=== PATIENT | female | born 1935 | race Caucasian/White ===

== ENCOUNTER 2019-05-19 13:38 | Observation (INO) | payer MEDICARE ==
[~2019-05-19] VITALS: Ht 157.5 cm; Wt 75.9 kg
--- NOTE | 2019-05-19 13:48 | NUR ---
THIS IS AN 83 YO F BIB [facility] FROM [facility] FOR SOB AND EPISODE OF SVT. PATIENT WAS ON HER WAY TO PT WHEN SHE FELT SOB AND WENT TO HER PRIMARY CARE DOCTOR. HER PRIMARY CARE THEN TRANSFERED HER TO [facility]. TRANSFERED HERE FOR ELEVATED TROPONIN. CUURENTLY IN NSR. RESPIRATIONS EVEN AND UNLABORED. PATIENT CONVERSING WITH RESIDENT. PATIENT IS IN NO ACUTE DISTRESS. CALL LIGHT IN REACH. DENIES FURTHER NEEDS AT THIS TIME.
[2019-05-19] MEDS ORDERED: SODIUM CHLORIDE 0.9%, 500ML IVBOLUS ONE (14:00)
--- NOTE | 2019-05-19 14:18 | NUR ---
BREAK RN: IV FLUID STARTED, PT VERBALIZED NO NEEDS AT HIS TIME. CALL LIGHT IN PLACE
--- NOTE | 2019-05-19 14:35 | NUR ---
BREAK RN: ASSISTED PT TO BATHROOM, GAIT SLOW AND STEADY. 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 ERON AND GRANDSON ALEXEY AT BS. DISCUSSED PLAN OF CARE, CTA AND ADMIT FOR OBSERVATION AND FAMILY VERBALIZED UNDERSTANDING.
[2019-05-19 14:37] LABS: TROPONIN I 0.987 ng/mL (0.000-0.045)
[2019-05-19] MEDS ORDERED: SODIUM CHLORIDE FLUSH 10ML SYR IVF ONE (15:00)
[2019-05-19] MEDS ORDERED: CHOL200024 PO (15:08)
[2019-05-19] MEDS ORDERED: CYAN1TAB29 PO (15:10)
[2019-05-19] MEDS ORDERED: ONDA4TAB13 SL (15:11)
[2019-05-19] MEDS ORDERED: METO25TA91 PO (15:12)
[2019-05-19] MEDS ORDERED: SIMV20TA3 PO (15:12)
[2019-05-19] MEDS ORDERED: LISI5TAB7 PO (15:13)
--- NOTE | 2019-05-19 15:35 | NUR ---
PATIENT RESTING ON GURNEY WITH CALL LIGHT IN REACH. DENIES FURTHER NEEDS AT THIS TIME.
[2019-05-19] MEDS ORDERED: SODIUM CHLORIDE FLUSH 10ML SYR IVF PRN (16:00)
--- NOTE | 2019-05-19 16:50 | NUR ---
DIET TRAY DELIVERED.
[2019-05-19] MEDS ORDERED: DOCUSATE 100 MG CAPSULE PO PRN (17:00)
[2019-05-19] MEDS ORDERED: ONDANSETRON 2MG/ML, 2ML IVPush PRN (17:00)
[2019-05-19] MEDS ORDERED: hydrALAzine 20 MG/ML, 1ML IVPush PRN (17:00)
[2019-05-19] MEDS ORDERED: NITROGLYCERIN 0.4 MG BOTTLE (25 TABS) SL PRN (17:00)
[2019-05-19] MEDS ORDERED: NITROGLYCERIN 0.4 MG/SPRAY SL PRN (17:00)
[2019-05-19] MEDS ORDERED: DILTIAZEM 5 MG/ML, 5ML IVPush PRN (17:00)
[2019-05-19] MEDS ORDERED: ACETAMINOPHEN 325 MG TABLET PO PRN (17:00)
[2019-05-19 17:16] LABS: FREE T4 (FREE THYROXINE) 0.99 ng/dL (0.76-1.46)
[2019-05-19 17:21] LABS: HEMOGLOBIN A1C 5.9 % (4.2-6.3)
--- NOTE | 2019-05-19 17:30 | NUR ---
PATIENT TRANSFERED TO HOSPITAL BED.
[2019-05-19] MEDS ORDERED: HEPARIN 5,000 UNITS/ML, 1ML ONE (18:04)
[2019-05-19] MEDS: SODIUM CHLORIDE 0.9% 1,000 ML IV SCH (18:07)
[2019-05-19] MEDS: HEPARIN 5,000 UNITS/ML, 1ML SQ SCH (18:10)
--- NOTE | 2019-05-19 18:54 | NUR ---
REPORT GIVEN TO BETTINA GOODRICH.
--- NOTE | 2019-05-19 19:04 | NUR ---
PATIENT TRANSFERED UPSTAIRS. NS STILL INFUSING.
[2019-05-19 19:21] VITALS: BP 128/70
[2019-05-20 00:05] LABS: MICROSCOPIC AUTO
[2019-05-20 00:07] LABS: CULTURE INDICATED? YES
[2019-05-20] MEDS: HEPARIN 5,000 UNITS/ML, 1ML SQ SCH ×3 (01:32→19:58)
[2019-05-20 02:04] LABS: CREATININE,URINE RANDOM 58.1 mg/dL
[2019-05-20 02:50] VITALS: BP 124/74
[2019-05-20 02:57] LABS: BASOPHILS # (AUTO) 0.04 x10^3/uL (0-0.1); BASOPHILS % (AUTO) 1 % (0-1); EOSINOPHILS # (AUTO) 0.11 x10^3/uL (0-0.4); EOSINOPHILS % (AUTO) 2 % (1-7); LYMPHOCYTES # (AUTO) 1.47 x10^3/uL (1-3.4); LYMPHOCYTES % (AUTO) 22 % (22-44); MD NO; MEAN CORPUSCULAR HEMOGLOBIN 32.3 pg (27.0-34.8); MEAN CORPUSCULAR HGB CONC 33.1 g/dL (32.4-35.8); MEAN CORPUSCULAR VOLUME 97.7 fL (80-100); MEAN PLATELET VOLUME 8.4 fL (7.4-10.4); MONOCYTES # (AUTO) 0.75 x10^3/uL (0.2-0.8); MONOCYTES % (AUTO) 11 % (2-9); NEUTROPHILS # (AUTO) 4.31 x10^3/uL (1.8-6.8); NEUTROPHILS % (AUTO) 65 % (42-75); PLATELET COUNT 241 x10^3/uL (130-400); RED BLOOD COUNT 3.78 x10^6/uL (3.82-5.3); RED CELL DISTRIBUTION WIDTH 13.4 % (9.6-15.2)
[2019-05-20 03:10] LABS: TROPONIN I 0.672 ng/mL (0.000-0.045)
[2019-05-20 04:11] LABS: ALBUMIN 3.4 g/dL (3.4-5.0); ANION GAP 5 mmol/L (5-15); CALCIUM 8.6 mg/dL (8.5-10.1); CHLORIDE 112 mmol/L (98-107)
[2019-05-20 04:15] LABS: ALANINE AMINOTRANSFERASE 38 U/L (12-78); ALKALINE PHOSPHATASE 62 U/L (45-117); BILIRUBIN,TOTAL 0.9 mg/dL (0.2-1.0); CHOL/HDL RATIO 5.2; CHOLESTEROL, TOTAL 161 mg/dL (140-239); CREATININE 1.32 mg/dL (0.55-1.02); HDL CHOL % 19 % (28-40); HDL CHOLESTEROL (DIRECT) 31 mg/dL (40-60); LDL CHOLESTEROL,CALCULATED 81 mg/dL (54-169); LDL/HDL RATIO 2.6 (0.5-3.0); TOTAL PROTEIN 6.9 g/dL (6.4-8.2); TRIGLYCERIDES 243 mg/dL (50-200); VLDL CHOLESTEROL 49 mg/dL (0-25)
[2019-05-20] MEDS ORDERED: REGADENOSON 0.4 MG/5 ML SYRINGE ONE (08:22)
[2019-05-20 08:41] VITALS: BP 126/73
[2019-05-20] MEDS: TEMPLATE NON-FORMULARY MED. (Cyanocobalamin/Folic Acid** (Vitamin B12-Folic Acid Tablet**) PO SCH (09:00)
[2019-05-20 12:35] VITALS: BP 162/71
[2019-05-20] MEDS: METOPROLOL SUCCINATE 25 MG TAB.ER.24H PO SCH (12:38)
[2019-05-20] MEDS: ASPIRIN 325 MG TABLET EC PO SCH (12:38)
[2019-05-20] MEDS: CHOLECALCIFEROL 1,000 UNIT TABLET PO SCH (12:39)
[2019-05-20] MEDS: SODIUM CHLORIDE 0.9% 1,000 ML IV SCH ×2 (12:39→23:45)
[2019-05-20] MEDS: SIMVASTATIN 20 MG TABLET PO SCH (12:39)
[2019-05-20 17:30] VITALS: BP 131/67
[2019-05-20 19:53] VITALS: BP 125/69
[2019-05-21 00:27] VITALS: BP 148/62
[2019-05-21] MEDS: HEPARIN 5,000 UNITS/ML, 1ML SQ SCH (04:32)
[2019-05-21 05:56] LABS: BASOPHILS # (AUTO) 0.03 x10^3/uL (0-0.1); BASOPHILS % (AUTO) 1 % (0-1); EOSINOPHILS % (AUTO) 3 % (1-7); LYMPHOCYTES # (AUTO) 1.26 x10^3/uL (1-3.4); LYMPHOCYTES % (AUTO) 20 % (22-44); MD NO; MEAN CORPUSCULAR HEMOGLOBIN 32.8 pg (27.0-34.8); MEAN CORPUSCULAR HGB CONC 33.1 g/dL (32.4-35.8); MEAN PLATELET VOLUME 8.5 fL (7.4-10.4); MONOCYTES # (AUTO) 0.68 x10^3/uL (0.2-0.8); MONOCYTES % (AUTO) 11 % (2-9); NEUTROPHILS # (AUTO) 4.11 x10^3/uL (1.8-6.8); NEUTROPHILS % (AUTO) 66 % (42-75); PLATELET COUNT 245 x10^3/uL (130-400); RED BLOOD COUNT 3.72 x10^6/uL (3.82-5.3); RED CELL DISTRIBUTION WIDTH 13.4 % (9.6-15.2)
[2019-05-21 06:06] LABS: ANION GAP 4 mmol/L (5-15); CALCIUM 8.5 mg/dL (8.5-10.1); CHLORIDE 114 mmol/L (98-107); CREATININE 1.23 mg/dL (0.55-1.02)
[2019-05-21 07:23] VITALS: BP 148/77
[2019-05-21] MEDS: CHOLECALCIFEROL 1,000 UNIT TABLET PO SCH (08:00)
[2019-05-21] MEDS: SIMVASTATIN 20 MG TABLET PO SCH (08:00)
[2019-05-21] MEDS: ASPIRIN 325 MG TABLET EC PO SCH (08:00)
[2019-05-21] MEDS: METOPROLOL SUCCINATE 25 MG TAB.ER.24H PO SCH (08:01)
[2019-05-21] MEDS: TEMPLATE NON-FORMULARY MED. (Cyanocobalamin/Folic Acid** (Vitamin B12-Folic Acid Tablet**) PO SCH (08:01)
== END 2019-05-21 15:23 | disposition home or self-care (01) ==
LOC: ED 15:20 → EDIP 15:47 → INTOOBSV 15:47 → 5SO 19:07
PROVIDERS: ADMIT Internal Medicine; ATTEND Hospitalist
DX: I47.1 Supraventricular tachycardia (principal); E78.5 Hyperlipidemia, unspecified; E87.2 Acidosis; D72.829 Elevated white blood cell count, unspecified; I21.4 Non-ST elevation (NSTEMI) myocardial infarction; I10 Essential (primary) hypertension; I48.0 Paroxysmal atrial fibrillation; M19.90 Unspecified osteoarthritis, unspecified site; Z79.899 Other long term (current) drug therapy
CPT/HCPCS: 36415; 71275; 78452; 80048; 80053; 80061; 81001; 82436; 82570; 83036; 83690; 83735; 84100; 84133; 84300; 84439; 84443; 84484; 85025; 87077; 87086; 87186; 93005; 93017; 93306; 96372; 96374; 99284; A9502; G0378; J1644; J2405; J2785; J7030; J7040